=== PATIENT | female | born 1945 | race Caucasian/White ===

== ENCOUNTER 2022-04-01 06:06 | Emergency (ER) | payer MEDICARE, MEDICAID, SELFPAY ==
[2022-04-01 06:18] VITALS: BP 156/88; PULSE 68; RESP 20; TEMP 36.7; O2SAT 96; O2SAT 98; BMI 29.7
[2022-04-01 06:25] VITALS: BP 132/75; PULSE 65; RESP 20; TEMP 36.7; O2SAT 96
--- NOTE | 2022-04-01 06:34 | ED.GENADULT ---
HPI - General Adult General Chief complaint: Fall Stated complaint: weakness Time Seen by Provider: 04/01/22 06:33 Source: RN notes reviewed Mode of arrival: EMS Limitations: altered mental status History of Present Illness HPI narrative: Patient was just discharged from [facility] for weakness and UTI, she was sent home with cefdoxime. Upon dropping the patient off EMS found the patient to be too weak and so the ambulance brought her to [place]. Related Data Home Medications Medication Instructions Recorded Confirmed acetaminophen 500 mg tablet 500 mg PO TID PRN Back Pain 04/01/22 04/01/22 amiodarone 200 mg tablet 200 mg PO DAILY 04/01/22 04/01/22 aspirin 81 mg tablet,delayed 81 mg PO DAILY 04/01/22 04/01/22 release atorvastatin 20 mg tablet 20 mg PO DAILY 04/01/22 04/01/22 cholecalciferol (vitamin D3) 50 50 mcg PO DAILY 04/01/22 04/01/22 mcg (2,000 unit) tablet fluticasone propionate 50 1 spray intranasal DAILY 04/01/22 04/01/22 mcg/actuation nasal spray,suspension gabapentin 300 mg capsule 300 mg PO DAILY 04/01/22 04/01/22 levothyroxine 100 mcg tablet 100 mcg PO DAILY 04/01/22 04/01/22 metoprolol tartrate 25 mg tablet 25 mg PO BID 04/01/22 04/01/22 polyvinyl alcohol 1.4 % eye drops 1 drp ophthalmic (eye) QID 04/01/22 04/01/22 potassium chloride 10 mEq 20 meq PO DAILY 04/01/22 04/01/22 tablet,extended release sodium chloride 0.65 % nasal spray 2 spray intranasal QID 04/01/22 04/01/22 aerosol (Saline Mist) Allergies Allergy/AdvReac Type Severity Reaction Status Date / Time No Known Allergies Allergy Verified 04/01/22 06:38 Review of Systems Review of Systems: Yes Unobtainable due to mental status PMFSH Past Medical History Medical History (Updated 04/01/22 @ 16:21 by Florencio Garcia MD) Afib Altered mental status, unspecified Aphasia following cerebral infarction At high risk for falls Bundle branch block, right Candidal intertrigo Cerebral atherosclerosis Ceruminosis Mvxopnn-Ofzka-Enbpo disease CHF (congestive heart failure) Coagulation defect, unspecified Cold feet Collapse of lumbar vertebra with routine healing Coronary artery disease Dementia Depression, major, recurrent, in remission Dizziness Dyspnea on exertion Epistaxis Glaucoma Headache, unspecified Hyperlipidemia Hypertension Hypertension Hypertriglyceridemia Hypopotassemia Hypothyroid IBS (irritable bowel syndrome) Insomnia, unspecified Muscle spasm Old myocardial infarction Orthostatic hypotension Osteoarthritis Osteopenia Osteopenia Other seasonal allergic rhinitis Other symptoms and signs involving cognitive functions following cerebral infarction Peroneal muscular atrophy Poor renal function Pure hyperglyceridemia Shoulder pain Spastic paraparesis Unspecified urinary incontinence Unspecified vitamin D deficiency Urinary tract infection Vascular dementia with behavioral disturbance Social History Social History Smoked in Last 30 Days: No Use of substances other than those prescribed or required for medical reasons: No Advance Directives: No Advance Directives Information Provided: No Physical Exam ED Vital Signs: Vital Signs - 24 hr 04/01/22 06:18 04/01/22 06:25 04/01/22 08:00 Temperature 98.1 F 98.1 F 97.8 F Pulse Rate 68 65 68 Respiratory Rate 20 20 18 Blood Pressure 132/75 111/90 H Pulse Oximetry 98 96 94 Oxygen Delivery Method Room Air Room Air 04/01/22 15:51 Temperature 97.8 F Pulse Rate 82 Respiratory Rate 16 Blood Pressure 120/54 L Pulse Oximetry 94 Oxygen Delivery Method Room Air BMI result Body Mass Index 29.7 Const Other: Frail elderly female Orientation/consciousness: oriented to person Limitations: altered mental status HENMT Head: Yes normal to inspection Ears: external ears normal General nose exam: Normal external nose present Mouth: Normal oral and palatal mucosa present and oropharynx normal Throat: Yes posterior oropharynx normal Eyes General: appearance normal, both eyes and all related structures Neck Neck: Yes normal visual inspection Chest Chest palpation & inspection: normal inspection of the chest Resp Auscultation: clear to auscultation bilaterally Cardio Jugular venous distension: no JVD Rate: regular rate Rhythm: regular rhythm Heart sounds: S1 normal heart sound present and S2 normal heart sound present GI Inspection: Yes normal to inspection Palpation (GI): Soft to palpation, nontender and No hepatosplenomegaly present Auscultation: normal bowel sounds General: Yes no CVA tenderness Back/Spine/Pelvis Back: no CVA tenderness Skin General skin exam: no rashes or lesions noted Neuro General: oriented to person Cranial nerves: Yes CN's II-XII intact bilaterally Motor exam (neuro): 5/5 motor strength present throughout Extrem General: Yes normal to inspection Psych Appearance: grossly normal Course Reevaluation(s) Reevaluation #1: Physician observation started now for evaluation of patient safety. Currently resting comfortably, lungs clear, CV RRR, abd nontender Time: 12:42 Medical Decision Making Lab Data Result diagrams: 04/01/22 07:22 04/01/22 07:22 Labs: Lab Results 04/01/22 04/01/22 Range/Units 07:22 07:22 WBC 6.4 (4.8-10.8) X10*3/uL RBC 4.41 (4.20-5.50) X10*6/uL Hgb 13.6 (12.0-16.0) g/dl Hct 41.2 (37.0-47.0) % MCV 93.4 (80.0-98.0) fL MCH 30.8 (27.0-33.0) pg MCHC 33.0 (31.0-35.0) g/dl RDW 12.4 (11.0-16.0) % Plt Count 217 (160-400) X10*3/uL MPV 9.4 (9.4-12.3) fL Immature Gran % (Auto) 0.3 (0.0-0.4) % Neut % (Auto) 63.5 (45-73) % Lymph % (Auto) 19.8 L (20-40) % [place] % (Auto) 14.3 H (2-11) % Eos % (Auto) 1.6 (0-4) % Baso % (Auto) 0.5 (0-2) % Lymph # (Auto) 1.3 (1.2-4.9) X10*3/uL [place] # (Auto) 0.9 (0.1-1.2) X10*3/uL Eos # (Auto) 0.1 (0.0-0.4) X10*3/uL Baso # (Auto) 0.0 (0.0-0.2) X10*3/uL Abs Immat Gran (auto) 0.02 (0.00-0.03) X10*3/uL Absolute Neuts (auto) 4.1 (2.0-8.3) x10*3/uL Absolute Nucleated RBC 0.000 (0.0-0.012) X10*3/uL Nucleated RBC % (auto) 0.0 (0.0-0.2) /100WBC Sodium 140 (135-145) mmol/L Potassium 3.9 (3.3-5.1) mmol/L Chloride 105 (96-108) mmol/L Carbon Dioxide 26 (22-29) mmol/L Anion Gap 13 (12-20) BUN 22 H (9-16) mg/dL Creatinine 0.82 (0.5-1.4) mg/dL Estim Creat Clear Calc 57.8 Estimated GFR > 60 Random Glucose 92 (60-115) mg/dL Calcium 9.0 (8.4-10.2) mg/dL Discharge Plan Discharge Clinical Impression: Weakness Patient Disposition: Still a Patient Prescriptions: No Action acetaminophen 500 mg Tablet 500 mg PO TID PRN (Reason: Back Pain) atorvastatin 20 mg Tablet 20 mg PO DAILY amiodarone 200 mg Tablet 200 mg PO DAILY aspirin 81 mg Tablet,Delayed Release (Dr/Ec) 81 mg PO DAILY fluticasone propionate 50 mcg/actuation [place],Suspension 1 spray INTRANASAL DAILY Rx Instructions: administer into each nostril cholecalciferol (vitamin D3) 50 mcg (2,000 unit) Tablet 50 mcg PO DAILY polyvinyl alcohol 1.4 % Drops 1 drp OPHTHALMIC (EYE) QID levothyroxine 100 mcg Tablet 100 mcg PO DAILY gabapentin 300 mg Capsule 300 mg PO DAILY metoprolol tartrate 25 mg Tablet 25 mg PO BID potassium chloride 10 mEq Tablet Extended Release 20 meq PO DAILY Saline Mist 0.65 % Aerosol,[place] 2 spray INTRANASAL QID
[2022-04-01 07:25] LABS: MANUAL DIFF FLAG NO
[2022-04-01 07:29] LABS: Basophils Percent Auto 0.5 % (0-2); Eosinophils Absolute Auto 0.1 X10*3/uL (0.0-0.4); Eosinophils Percent Auto 1.6 % (0-4); Hematocrit 41.2 % (37.0-47.0); Hemoglobin 13.6 g/dl (12.0-16.0); Imm Gran Abs Auto 0.02 X10*3/uL (0.00-0.03); Imm Gran Pct Auto 0.3 % (0.0-0.4); Lymphocytes Absolute Auto 1.3 X10*3/uL (1.2-4.9); Lymphocytes Percent Auto 19.8 % (20-40); Mean Corpuscular Hemoglobin 30.8 pg (27.0-33.0); Mean Corpuscular Volume 93.4 fL (80.0-98.0); Mean Platelet Volume 9.4 fL (9.4-12.3); Monocytes Absolute Auto 0.9 X10*3/uL (0.1-1.2); Monocytes Percent Auto 14.3 % (2-11); Neutrophils Absolute Auto 4.1 x10*3/uL (2.0-8.3); Neutrophils Percent Auto 63.5 % (45-73); Platelet Count 217 X10*3/uL (160-400); Red Blood Count 4.41 X10*6/uL (4.20-5.50); Red Cell Distribution Width 12.4 % (11.0-16.0); White Blood Count 6.4 X10*3/uL (4.8-10.8)
[2022-04-01 07:42] LABS: Anion Gap 13 (12-20); Blood Urea Nitrogen 22 mg/dL (9-16); Carbon Dioxide 26 mmol/L (22-29); Chloride 105 mmol/L (96-108); Creatinine Clr Calc Pharmacy 57.8; Estimated Glomerular Filt Rate > 60; Glucose Random 92 mg/dL (60-115); Potassium 3.9 mmol/L (3.3-5.1); Sodium 140 mmol/L (135-145)
[2022-04-01 08:00] VITALS: BP 111/90; PULSE 68; RESP 18; TEMP 36.6; O2SAT 94
--- NOTE | 2022-04-01 08:21 | PC.NURSE ---
[facility] for case management [employer] sales operations consultant Beata Mcdonald [phone]
--- NOTE | 2022-04-01 08:22 | PC.NURSE ---
Chrissy aguirre A staff member from [facility] called stated the patient had been admitted as obs recently to [facility] she was discharged with confusion and slurred speech and they had recommended [facility] living[facility] able to ensure she had the appropriate level of assistance for her to return home to assisted living. Upon the patient returning home pt fell and was brought back to [facility] a 2[facility] time, upon patient being discharged from their ed to return back home ems felt she wasnt safe as there was not anybody in the home to receive the patient so brought her to [facility] [place]. Per [facility] the patient does live in assisted living and has an aid that checks in on her hourly. Patient is a high fall risk at baseline and walks with a walker. They would like the hospital case management to reach out to Beata Mcdonald [phone] if pt/case management is recommending senior living for the patient.
--- NOTE | 2022-04-01 10:04 | PC.NURSE ---
olivier sharon sent over [employer], completed in system, will give registration patients address to update in system
--- NOTE | 2022-04-01 12:19 | PC.NURSE ---
patient awake, alert to person/place, pt states Im ready to go home this nurse has attempted to explain to the patient that she needs to be seen by physical therapy and case management to ensure she is able to ambulate well enough because of her frequent falls. Pt states I walk fine with my walker pt was redirected to a movie on the TV, will continue to monitor
--- NOTE | 2022-04-01 14:10 | PC.NURSE ---
patient awake/alert, moved from stretcher to hospital bed, bed alarm put on as patient had been seeking to leave. fall precautions continue to be in place, pure wick placed, pt denying pain at this time, will continue to monitor.
[2022-04-01 15:51] VITALS: BP 120/54; PULSE 82; RESP 16; TEMP 36.6; O2SAT 94
--- NOTE | 2022-04-01 16:30 | PC.NURSE ---
patient a&ox2, watching tv, denies pain/discomfort, sleeping on and off throughout the day, call agrawal within reach, will continue to monitor.
--- NOTE | 2022-04-01 18:40 | PC.NURSE ---
patient currently sleeping
[2022-04-01 22:00] VITALS: BP 171/82; PULSE 90; RESP 18; TEMP 36.7; O2SAT 95
[2022-04-01 23:40] VITALS: BP 178/45; PULSE 86; RESP 18; TEMP 36.8; O2SAT 96
[2022-04-02 08:06] VITALS: PULSE 86; O2SAT 96
--- NOTE | 2022-04-02 08:11 | PC.NURSE ---
Physical therapy at bedside for assessment , recommendation for patient to be placed for rehab facility . patient aware of plan of care .
[2022-04-02 08:15] VITALS: BP 138/70; PULSE 74; RESP 18; TEMP 36.6; O2SAT 95
[2022-04-02 08:50] LABS: COVID-19 Test Negative (Negative); IDNOW Serial# BCCEAD1C
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
--- NOTE | 2022-04-02 09:49 | MHC.CM.ED ---
Addendum entered by Sienna Prasad 04/02/22 13:58: Received telephone call from lEen of [employer] [facility]. Team feels patient can safely return home with 24/7 care as long as patient receives PO dose of antibiotic prior to being discharged. Ceftin ordered by Yoly MARTIN. Transportation will be here at 230pm to transport patient home. Elen will notify patient's son/HCP, Jordin, of the discharge plan. Patient, Richie RN and Mira MARTIN aware. Original Note: Received case management consult from Dr Garcia. Patient was discharged from [facility] ER. Found to have an UTI. EMS transport patient home and didn't feel she was safe. They then transported patient to [facility] ER. Work up essentially negative. Physical therapy eval completed. Short term rehab is recommended. Patient is active with [employer] [facility] and has an invoked HCP. Clincal info sent to Elen of [employer] so she can authorize STR. Continue to monitor for d/c needs.
--- NOTE | 2022-04-02 11:54 | PC.NURSE ---
report taken from katie almazan pt brought over in hospital bed, initially disgruntled with transport staff, and subsequently irritated with this rn on first contact. pt appears to be difficult to understand at times, intermittently mumbling under breath but when prompted to clarify, speaks clearly. alert and oriented to self, unwilling to part with pt keys. in no obvious distress. awaiting authorization for str placement per notes. pt asking to be left alone with the lights off, lights left on due to safety concerns. wctm for dc needs.
[2022-04-02] MEDS: Aspirin Enteric Coated 81 MG TABLET.DR PO (12:20)
[2022-04-02] MEDS: Cholecalciferol (Vitamin D3) 25 MCG TABLET 50 MCG PO (12:20)
[2022-04-02] MEDS: Atorvastatin Calcium 20 MG TABLET PO (12:20)
[2022-04-02] MEDS: Amiodarone HCL 200 MG TABLET PO (12:20)
[2022-04-02] MEDS: Gabapentin 300 MG CAPSULE PO (12:21)
[2022-04-02] MEDS: Metoprolol Tartrate 25 MG TABLET PO ×2 (12:21→21:41)
--- NOTE | 2022-04-02 14:01 | PC.NURSE ---
taking po meds without issue, ate lunch 100%. found to be incontinent of urine around peri[place], linens changed and doug care given. wound dressing on bottom appears intact.
--- NOTE | 2022-04-02 14:39 | PC.NURSE ---
pt had initially had plans to be transported by wheelchair van back to apartment where 29/11 care would be coordinated. upon van arrival, pt is resistant, not making sense, refusing to go in wheelchair van. upon significant redirection to conversation, pt clearly stating she does not want to go back to her apartment because she does not have enough there to get by . pt discussed with this rn and case mgmt that plan will then be for snf placement and bed search, pt agreeable to that at this time.
--- NOTE | 2022-04-02 15:26 | MHC.CM.ED ---
Chrissy Israel transport at patient's bedside to transport patient home. Patient refusing to get into wheelchair. Patient want to go to rehab. Flory Israel is willing to authorize [facility]. Patient can leave ER at 830pm. [facility] booked. Patient, Eric ESPITIA and Yoly MARTIN aware. Elen is going to notify patient's son.
[2022-04-02 15:54] VITALS: BP 138/66; PULSE 67; RESP 16; TEMP 36.6; O2SAT 95
--- NOTE | 2022-04-02 19:04 | MHC.CM.ED ---
[facility] unable to transport pt to [facility] at 2030. Told RN that they were delayed at least 2 hours.CM called facility. Facility told CM that [facility] said they could have the patient at the facility for 1am. Facility states if she needs to come tonight, they would accept her then, otherwise in the morning. CM and RN at facility agreed that patient would do better if she were transported in the morning. Facility requests 9am. CM spoke with [facility]. Agreeable to transport patient to [facility] on 04/03 at 9am. Pt has dementia and an invoked HCP. RN Richie in overflow aware. CM to follow for d/c needs.
--- NOTE | 2022-04-02 19:44 | PC.NURSE ---
Assumed care of pt. Pt sleeping at this time in no apparent distress. Breaths are equal and unlabored with equal chest rises. Pt is scheduled to be transferred to [place] via ambulance at 9am. Will continue to monitor.
[2022-04-02 21:38] VITALS: BP 149/77; PULSE 68; RESP 14; TEMP 36.6; O2SAT 96
[2022-04-02] MEDS: Artificial Tears 15 ML DROPS 1 DROP EYE-BOTH (21:41)
[2022-04-02] MEDS: Sodium Chloride 0.65 % Nasal 44 ML SPRBTL 2 SPRAY NOSTRIL-B (21:41)
--- NOTE | 2022-04-02 22:40 | PC.NURSE ---
Pt incontinent of urine. Pericare provided.
--- NOTE | 2022-04-02 23:36 | PC.NURSE ---
Took over patient care around 2300. Pt oriented to self. Hx dementia. LS-CTA. No cough/sob noted. BS+. PP+, no edema. Pt incontinent of urine. Alevyn dressing on buttocks-CD&I. Right leg dressing/wrapped-CD&I. PP+. No c/o or s/s of pain/discomfort. Call agrawal within reach. Will continue to monitor. Plan-D/C to [place] [facility] [address] tomorrow.
[2022-04-03] MEDS: Levothyroxine Sodium 100 MCG TABLET PO (05:46)
[2022-04-03 06:00] VITALS: BP 142/99; PULSE 61; TEMP 36.3; O2SAT 94
[2022-04-03] MEDS: Atorvastatin Calcium 20 MG TABLET PO (07:59)
[2022-04-03] MEDS: Metoprolol Tartrate 25 MG TABLET PO (07:59)
[2022-04-03] MEDS: Gabapentin 300 MG CAPSULE PO (07:59)
[2022-04-03] MEDS: Cholecalciferol (Vitamin D3) 25 MCG TABLET 50 MCG PO (07:59)
[2022-04-03] MEDS: Aspirin Enteric Coated 81 MG TABLET.DR PO (07:59)
[2022-04-03] MEDS: Amiodarone HCL 200 MG TABLET PO (07:59)
== END 2022-04-03 09:30 | disposition home or self-care (01) ==
PROVIDERS: Physician Assistant Medical; Emergency Provider Emergency Medicine; PCP Internal Medicine Rheumatology
DX: R53.1 Weakness (principal); N39.0 Urinary tract infection, site not specified; Z20.822 Contact with and (suspected) exposure to COVID-19; I11.0 Hypertensive heart disease with heart failure; I50.9 Heart failure, unspecified; I48.91 Unspecified atrial fibrillation; E78.5 Hyperlipidemia, unspecified; Z79.02 Long term (current) use of antithrombotics/antiplatelets; Z79.82 Long term (current) use of aspirin; Z79.899 Other long term (current) drug therapy
CPT/HCPCS: 36415; 80048; 85025; 87635; 97162; 99285